=== PATIENT | male | born 2000 | race African-American/Black ===

== ENCOUNTER 2024-03-20 09:28 | Emergency (ER) | payer OTHER ==
[~2024-03-20] VITALS: Ht 172.7 cm; Wt 72.9 kg
[2024-03-20 11:18] VITALS: BP 155/78; TEMP 98.5; O2SAT 100
[2024-03-20] MEDS ORDERED: METH-1165 PO (11:19)
== END 2024-03-20 11:27 | disposition home or self-care (01) ==
LOC: M ED 09:28
DX: M62.830 Muscle spasm of back (principal); Z79.899 Other long term (current) drug therapy

== ENCOUNTER 2025-02-25 18:26 | Emergency (ER) | payer OTHER ==
[~2025-02-25] VITALS: Ht 172.7 cm; Wt 76.0 kg
[~2025-02-25 18:26] MED LIST: METH-1165 PO
[2025-02-25] MEDS ORDERED: CEPH500C PO (19:32)
[2025-02-25 19:39] VITALS: BP 148/65; TEMP 98.1; O2SAT 100
[2025-02-25] MEDS: CEPHALEXIN 500 MG CAP PO ONE (19:39)
== END 2025-02-25 19:44 | disposition home or self-care (01) ==
LOC: M ED 18:26
DX: L03.011 Cellulitis of right finger (principal); Z79.2 Long term (current) use of antibiotics; Z79.899 Other long term (current) drug therapy

== ENCOUNTER 2025-07-09 14:34 | Emergency (ER) | payer OTHER ==
[~2025-07-09] VITALS: Ht 172.7 cm; Wt 73.7 kg
[~2025-07-09 14:34] MED LIST changes: +CEPH500C PO
[2025-07-09 15:37] LABS: BASO # 0.0 10^3/uL (0.0-0.2); BASO % 0.3 % (0.0-1.0); EOS # 0.0 10^3/uL (0.0-0.5); EOS % 0.2 % (0.0-3.0); LYMPH # 1.5 10^3/uL (1.5-5.0); LYMPH % 15.6 % (24.0-44.0); MONO # 0.8 10^3/uL (0.0-0.8); MONO % 7.9 % (2.0-8.0); NEUTROPHILS # 7.3 10^3/uL (1.5-8.5); NEUTROPHILS % 75.9 % (36.0-66.0); PLATELET COUNT, AUTOMATED 267 10^3/uL (150-450)
[2025-07-09 16:16] VITALS: TEMP 96.5
[2025-07-09 16:19] LABS: ALT/SGPT 23 U/L (7.0-40); AST/SGOT 23 U/L (<34); CALCIUM LEVEL 10.2 MG/DL (8.5-10.1); CARBON DIOXIDE LEVEL 23 MMOL/L (20-31); CHLORIDE LEVEL 102 MMOL/L (98-107); CREATININE FOR GFR 0.93 MG/DL (0.70-1.30); GLOMERULAR FILTRATION RATE > 90.0 (>60); MAGNESIUM LEVEL 2.1 MG/DL (1.8-2.4); POTASSIUM SERUM 4.2 MMOL/L (3.5-5.1); SODIUM LEVEL 140 MMOL/L (136-145)
[2025-07-09 16:34] LABS: CPK CREATINE PHOSPHOKINASE 169 U/L (46-171)
[2025-07-09 17:30] VITALS: BP 126/73; O2SAT 99
== END 2025-07-09 17:47 | disposition home or self-care (01) ==
LOC: M ED 14:34
DX: R94.31 Abnormal electrocardiogram [ECG] [EKG] (principal)

== ENCOUNTER 2025-07-14 19:48 | Emergency (ER) | payer OTHER ==
[~2025-07-14] VITALS: Ht 172.7 cm; Wt 73.6 kg
[2025-07-14 20:22] LABS: BASO # 0.0 10^3/uL (0.0-0.2); BASO % 0.6 % (0.0-1.0); EOS # 0.1 10^3/uL (0.0-0.5); EOS % 0.9 % (0.0-3.0); LYMPH # 2.0 10^3/uL (1.5-5.0); LYMPH % 30.9 % (24.0-44.0); MONO # 0.8 10^3/uL (0.0-0.8); MONO % 13.0 % (2.0-8.0); NEUTROPHILS # 3.5 10^3/uL (1.5-8.5); NEUTROPHILS % 54.4 % (36.0-66.0); PLATELET COUNT, AUTOMATED 245 10^3/uL (150-450)
[2025-07-14] MEDS: NS (Normal Saline) 0.9% 1,000 ML IV ONE (20:50)
[2025-07-14 21:10] LABS: CALCIUM LEVEL 9.5 MG/DL (8.5-10.1); CARBON DIOXIDE LEVEL 25 MMOL/L (20-31); CHLORIDE LEVEL 106 MMOL/L (98-107); CK-MB VALUE MASS 1.3 NG/ML (<3.6); CPK CREATINE PHOSPHOKINASE 175 U/L (46-171); CREATININE FOR GFR 0.95 MG/DL (0.70-1.30); GLOMERULAR FILTRATION RATE > 90.0 (>60); MB/CK RELATIVE INDEX 0.74 (< OR =4); POTASSIUM SERUM 5.0 MMOL/L (3.5-5.1); SODIUM LEVEL 141 MMOL/L (136-145)
[2025-07-14] MEDS ORDERED: ISOVUE-370 76% 100 ML VIAL As Ordered ONE (21:41)
[2025-07-14 23:30] VITALS: BP 122/65; TEMP 98.2; O2SAT 99
[2025-07-14] MEDS ORDERED: HOLTER MONITOR XX (23:38)
== END 2025-07-14 23:53 | disposition home or self-care (01) ==
LOC: M ED 19:48
DX: R55 Syncope and collapse (principal); R07.9 Chest pain, unspecified
CPT/HCPCS: 70450; 70498; 71045; 71275; 80047; 80048; 82550; 82553; 84443; 84484; 85025; 93041; 94760; 96360; 96361; 99285; Q9967

== ENCOUNTER → 2025-07-16 | Outpatient (CLI) | payer OTHER ==
[~2025-07-16] MED LIST changes: +HOLTER MONITOR XX
== END ==
LOC: M EKG 09:22
PROVIDERS: ATTEND Emergency Medicine
DX: R55 Syncope and collapse (principal)